=== PATIENT | male | born 1980 | race Caucasian/White ===

== ENCOUNTER 2025-07-20 10:21 | Day surgery (SDC) | payer BC, SELFPAY ==
[2025-07-20] VITALS (13 sets, daily range): BP systolic 120–147; BP diastolic 79–98; PULSE 65–84; RESP 14–18; TEMP 35.8–36.5; O2SAT 94–100; BMI 29.2
--- NOTE | 2025-07-20 11:02 | EDS_ITS ---
HPI HPI - GI History of Present Illness Chief Complaint: Foreign Body Informant: patient Narrative Narrative: 45-year-old male presenting to the emergency room and concern for esophageal food bolus. Patient states he ate steak last night for dinner. He states that maybe once a month he said times where he felt the food has not gone down all the way. He states he is always been able to get it down in the past. He tried some coke last night and some Sprite. He states that every time he tries to drink anything it comes back up. He tried again this morning with no relief, came to emergency. He has never had endoscopy before. He notes some burning midsternal pain currently did have much like he feels with indigestion. He does not take anything for GERD. PFSH PFSH Medical History no medical history Allergy/AdvReac Type Severity Reaction Status Date / Time Penicillins Allergy Intermediate PT UNSURE Verified 07/20/25 10:24 OF REACTION Social History Smoking Status: Never smoker ROS ROS ED Constitutional Constitutional ED: Denies chills, fever(s) or weight loss Eyes Eyes: Denies change in vision or diplopia ENT ENT ED: Denies ear pain, rhinorrhea or sore throat Cardiovascular Cardiovascular: Reports other Details: See history of present illness ; Denies chest pain, orthopnea, palpitations or racing heartbeat Respiratory/Chest Respiratory/Chest: Denies cough, dyspnea or orthopnea Gastrointestinal Gastrointestinal: Denies abdominal pain, diarrhea, nausea or vomiting Genitourinary Genitourinary ED: Denies dysuria, hematuria or urinary frequency Musculoskeletal Musculoskeletal: Denies arthralgias or myalgias Integumentary Denies abscess or rash Neurologic Neurologic: Denies headache(s) or weakness Psychiatric Psychiatric: Denies anxiety, depression, suicidal ideation or suicidal thoughts Endocrine Endocrinology: Denies polydipsia, polyphagia or polyuria Allergic/Immunologic Allergic/Immunologic ED: Denies mouth swelling, tongue swelling or urticaria EXAM Physical Exam Const Vital Signs: 07/20/25 10:22 07/20/25 10:51 Temperature 96.5 F L Temperature Source Oral Pulse Rate 81 Respiratory Rate 16 Respiratory Pattern Normal Blood Pressure 147/98 H Blood Pressure Mean 114 Pulse Ox 98 Oxygen Delivery Method Room Air Positive well nourished and well developed General Appearance ED: well developed HEENT Reports normocephalic, head/scalp atraumatic and moist mucous membranes Eyes PERRL and EOMs intact bilaterally Neck no lymphadenopathy, supple and no JVD Resp normal respiratory effort and clear to auscultation bilaterally Cardio regular rate, regular rhythm and no murmurs GI normal to inspection, nondistended, normoactive bowel sounds and non-tender Palpation: soft Back/Spine no CVA tenderness and normal ROM Extremity normal to inspection General Extremety ED: Negative for edema General Extremity: Negative for edema Neuro oriented x3 and CN's II-XII intact bilaterally Sensorium / Orientation: alert Motor Exam: strength 5/5 throughout Psych mental status grossly normal Mood & Affect: Negative for depressed or tearful Skin no rashes or lesions noted and no wounds MDM MDM MDM Narrative Medical decision making narrative: Differential diagnosis includes but not limited to esophageal perforation esophageal food bolus Schatzki's ring GERD stricture Patient was unable to tolerate Coke. I spoke with Dr. Archer from gastroenterology. Management Discussion w/another healthcare provider: [employer] (Dr. Jones ([facility])) Discharge Plan Triage Chief Complaint: Foreign Body ED Provider: Moise Pierce Dx/Rx/DC Orders Primary Care Provider: Roc Levy Referrals: Roc Levy MD [Primary Care Provider, Family Practice] Print Language: Irish
--- NOTE | 2025-07-20 12:25 | PRE.ANES_ITS ---
ASA Classification* ASA Classification ASA Classification: 2 Assessment & Plan Anesthesia* Anesthesia Assessment Anesthesia Assessment: Discussed sedation and/or anesthesia options, risks, benefits, and alternatives with patient/parents/legal guardian/POA. Questions invited. The patient/parents/legal guardian/POA seems to understand and agrees to proceed with anesthesia plan. Reviewed the physical assessment, medical history, allergy history and patient home medications list prior to surgery/procedure/anesthetic and documented any changes. Performed airway and anesthesia risk assessments. Anesthesia Type Anesthesia Type: MAC History Source History Obtained from:: Patient and Chart Anesthesia Focused Assessment* Temperature: 96.5 F Pulse Rate: 81 Blood Pressure: 147/98 Respiratory Rate: 16 Pulse Ox: 98 Oxygen Delivery Method: Room Air Airway Assessment Mouth opens: >3 cm Mallampati Score: III Teeth Condition: Intact Neck Range of motion (ROM): Full ROM Labs Anesthesia Preop lab: CBC CHEMISTRY Potassium, (3.5-5.1) 3.7 mmol/L 07/06/16, 16:06 Sodium, (136-145) 141 mmol/L 07/06/16, 16:06 BUN, (7-18) 16 mg/dL 07/06/16, 16:06 Creatinine, (0.70-1.30) 0.93 mg/dL 07/06/16, 16:06 Glucose, (70-110) 90 mg/dL 07/06/16, 16:06 COAG Pre-Assessment Diagnosis/Proposed Procedure Planned Operative Procedure(s): Esophagogastroduodenoscopy with possible biopsy, dilation, or cautery. Anesthesia History Anesthesia History - home health aide caregiver: Anesthesia History - home health aide caregiver Hx Hospitalization Any Problems With Anesthesia Cholinesterase deficiency You/Your Family Experience fever (hyperthermia) with Relationship Recent Exposure to Contagious Disease Does patient have nerve stimulator Patient instructed to have device shut off --Does patient have Pacemaker or ICD? When Was Last Pacemaker Check QUESTION #4 FULL TEXT: You/Your Family Experience fever (hyperthermia) with Anesthesia Last Oral Intake Last Oral intake: Last Oral Intake NPO since 0000 Meds taken in AM with sips of water? Meds patient instructed to take am of surgery PONV PONV - home health aide caregiver: PONV - home health aide caregiver Female HX of Motion Sickness HX of N/V After Surgery Non-Smoker Duration of Surgery greater than 60 minutes Number of Risk Factors PONV Score Height & Weight Height & Weight: Anesthesia: Height & Weight Height 5 ft 9 in 07/20/25 10:22 Weight: 89.857 kg 07/20/25 10:22 Body Mass Index (BMI) 29.2 07/20/25 10:22 Respiratory Assessment Respiratory Assessment - home health aide caregiver: Respiratory Tract Infection Hx - home health aide caregiver Hx Respiratory Tract Infection N STOP Sleep Apnea STOP Sleep Apnea - home health aide caregiver: STOP Sleep Apnea - home health aide caregiver Hx Hypertension Hx Sleep Apnea CPAP BIPAP Do you snore loudly (louder than talking or can be heard Do you often feel tired/ fatigued/ sleepy during daytime? Has anyone observed you stop breathing during sleep? STOP Results QUESTION #5 FULL TEXT : Do you snore loudly (louder than talking or can be heard through closed doors)? 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 Specify any problems Hx of Preganancy in last 3 Months Nurse Filling Out Transfusion & Questions: Date: Time: Patient unable to answer at this time (ie. confused, unrespo /Reproduction History /Reproductive History - home health aide caregiver: /Reproductive Hx- home health aide caregiver Hx Now Gestational Age (in weeks): EDC: Hx Hx Para Hx Section SAB Does the father of the baby or his family experience fever w Father of the baby Malignant Hypertension history comment PFSH Medical History no medical history Allergy/AdvReac Type Severity Reaction Status Date / Time Penicillins Allergy Intermediate PT UNSURE Verified 07/20/25 10:24 OF REACTION Surgical History (Updated 07/20/25 @ 12:[address] Chet Gates MD) [place] teeth removed Social History Smoking Status: Never smoker Review of Systems (Anesthesia) ROS Narrative System reviewed and no additional complaints, except as documented.
--- NOTE | 2025-07-20 12:50 | EGD_PTH ---
PATIENT: ADAM ALEJANDRE LOC: [facility] U#:[id number] AGE/SX: 45/M ROOM: RE07/20/[address]: Dr. Kvng Jones DO : 1980 BED: DIS: 07/20/2025 SPEC #: [id number] RECD: 07/23/25 08:22 STATUS: RIYA YAIMA #: [id number] URSULA: 07/20/25 12:[address]: Kvng Jones DEPT: SURGICAL PATHOLOGY RECD BY: Bia Matthew ENTERED: 07/23/25 11:09 SP TYPE: EGD BIOPSY EDVIN DR: Dr. Jonatan Snell MD Tissues: A - Esophagus, NOS B - Esophagus, NOS Procedures: Surgery Specimen Level IV HEADER OPERATION: EGD, removal of foreign body with biopsies PRE-OP DIAGNOSIS: Esophageal obstruction due to food impaction TISSUE SUBMITTED: Distal esophagus biopsy, random esophageal biopsies MICROSCOPIC DIAGNOSIS A. Esophagus, distal, biopsy: - Fragments of squamous mucosa with marked reactive changes, hyperparakeratosis with dyskeratosis, and focal possible erosion/ulceration (deeper sections examined) - see note. - Up to 15 eosinophils per high power field, focal acute inflammation. - PASD stain highlights mixed bacteria and is negative for fungal organisms. Note: The dyskeratosis raises consideration of dysplasia vs severe reactive atypia. No submucosa is seen in these sections. If this biopsy represents only a portion of a larger lesion, the findings may not be disability representative. Recommend correlation with clinical and endoscopic findings. B. Esophagus, random, biopsy: - Squamous mucosa with marked reactive changes and hyperparakeratosis with dyskeratosis. - 80 eosinophils per high power field. MICROSCOPIC DESCRIPTION Slides are reviewed. All matched controls reacted appropriately. These tests were developed and their performance characteristics determined by [facility]. They may not have been cleared or approved by the U.[place]. Food and Drug Administration. The FDA has determined that such clearance or approval is not necessary. The above immunohistochemical markers and/or special?stains have been reviewed by the Pathologist. GROSS DESCRIPTION A. Received is one container labeled with the patient name and designated distal esophagus biopsy. The specimen consists of multiple irregular fragments of light mcdaniel soft tissue that in aggregate measure 1 x 0.6 x 0.3 cm. The specimen is totally submitted in one cassette. CPT: B. Received is one container labeled with the patient name and designated random esophageal biopsies. The specimen consists of multiple irregular fragments of light mcdaniel soft tissue that in aggregate measure 1.2 x 0.5 x 0.2 cm. The specimen is totally submitted in one cassette. CPT: 03138e1,28775 CW:07/23/2025
--- NOTE | 2025-07-20 13:08 | HP.PCM_ITS ---
HPI - General General Date of Admission: 08/01/25 Date of Service: 07/20/25 Chief Complaint: Food stuck in my throat. HPI Narrative ADAM ALEJANDRE, is [id number] male presenting to the emergency room with concern for esophageal food bolus impaction.?Patient reports eating steak last night and feeling the food has not gone down all the way. He attempted to clear the obstruction with Coca-Cola and Sprite last night and water this morning, but all attempts resulted in emesis. This prompted the ER visit. * Patient reports this happens maybe once a month (times where he felt the food has not gone down all the way) but previously always resolved spontaneously. He denies a prior endoscopy. * Associated Symptoms:?Reports current burning midsternal pain, which he describes as similar to indigestion. He denies dysphagia for liquids at present beyond regurgitation of attempts to drink. * ?Does not take medication for GERD. * ?NKDA (No Known Drug Allergies) * ?Unremarkable per patient report, no prior GI workup or endoscopy.?] PFSH Medical History no medical history Allergy/AdvReac Type Severity Reaction Status Date / Time Penicillins Allergy Intermediate PT UNSURE Verified 07/20/25 10:24 OF REACTION Surgical History [place] teeth removed Social History Smoking Status: Never smoker ROS Constitutional Constitutional: Denies fatigue, fever(s), poor appetite, weight gain or weight loss Gastrointestinal Gastrointestinal: Denies belching, bloating, change in bowel habits, change in stool character, chewing difficulty, coffee ground emesis, constipation, cramping, diarrhea, dyspepsia, dysphagia, early satiety, excessive flatus, fecal incontinence, heartburn, hematemesis, hematochezia, hemorrhoids, loose stools, melena, nausea, odynophagia, rectal bleeding, tenesmus, vomiting or weight changes Patient's Goals Of Care . What would you like to achieve or improve as a result of your hospital stay?: none Vital Signs Vital Signs Vital Signs: 07/20/25 10:22 07/20/25 10:51 07/20/25 12:33 Temperature 96.5 F L 96.5 F L Temperature Source Oral Pulse Rate 81 81 Respiratory Rate 16 16 Respiratory Pattern Normal Blood Pressure 147/98 H 147/98 H Blood Pressure Mean 114 Pulse Ox 98 98 Oxygen Delivery Method Room Air Room Air Weight Weight: 198 lb 1.6 oz Body Mass Index (BMI) 29.2 Physical Exam Const alert, oriented x3, no apparent distress and healthy appearing General Appearance: cooperative GI normal to inspection, nondistended, normoactive bowel sounds, soft to palpation, non-tender and non-distended Percussion: normal to percussion Rectal Exam: deferred Assessment & Plan Assessment/Plan (1) Esophageal obstruction due to food impaction: PLAN: 45-year-old male with: * Esophageal food bolus impaction (likely steak). * History of recurrent, spontaneous-resolving dysphagia?suggesting possible underlying esophageal pathology (e.g., peptic stricture, Schatzki ring, eosinophilic esophagitis). * Midsternal pain/discomfort?associated with obstruction and likely secondary to esophageal distension and potential chemical irritation (GERD symptoms).? The patient presents with an acute obstruction requiring intervention due to the duration of impaction (since last night) and inability to tolerate liquids. The clinical picture warrants emergent endoscopy not just for removal, but to evaluate for underlying structural or inflammatory causes.? Plan * Diagnosis/Workup: * Complete blood count (CBC), comprehensive metabolic panel (CMP), and chest X-ray to assess for complications (e.g., perforation, aspiration). * Proceed with urgent/emergent esophagogastroduodenoscopy (EGD) for direct visualization and removal of the food bolus. * Treatment: * NPO (Nil per os/Nothing by mouth). * IV access established; IV fluid hydration as needed. * This was coordinated with Anesthesia for EGD with monitored anesthesia care (MAC) or general anesthesia given the risk of aspiration during the procedure. * Endoscopic management will involve gentle disimpaction and retrieval of the bolus, followed by careful examination of the esophageal mucosa to identify the underlying cause of the stricture or ring. * Follow-up: * Schedule outpatient follow-up with Gastroenterology after discharge for further evaluation and management of the underlying cause (e.g., consideration of esophageal dilation, PPI therapy if GERD/stricture confirmed, or allergy testing/dietary modifications if eosinophilic esophagitis is suspected) Portions of this note were generated using voice recognition software ([employer] Dictation). I have reviewed the contents and every effort has been made to ensure accuracy; however, inadvertent errors in grammar, spelling, punctuation, or word choice may occur, that were not noted before signing the document and should not alter the intended clinical meaning.
--- NOTE | 2025-07-20 13:52 | OP.PROVAT_ITS ---
07/20/2025 Jonatan Snell MD [address] [id number] Re : Upper GI endoscopy procedure for Ayan Blackmons Dear Dr. Snell This procedure was performed on Sunday, July 20, 2025. My impressions and recommendations are as follows: Impressions : - Esophageal mucosal changes consistent with eosinophilic esophagitis. - Food in the lower third of the esophagus. Removal was successful. - No gross lesions in the entire stomach. - No gross lesions in the entire examined duodenum. - Biopsies were taken with a cold forceps for evaluation of eosinophilic esophagitis. Recommendations : - Discharge patient to home. - Resume previous diet. - Continue present medications. - Await pathology results. - Repeat upper endoscopy in 3 months for surveillance. My findings are described in the full procedure note, which is enclosed. If I can be of further assistance, please feel free to contact me at . Sincerely, Kvng Jones, 07/20/2025 1:52:32 PM This report has been signed electronically.
--- NOTE | 2025-07-20 13:52 | OP.EGD_ITS ---
Patient Name: Ayan Cha Procedure Date: 07/20/2025 1:19 PM Date of : 1980 Age: 45 Procedure: Upper GI endoscopy Indications: Dysphagia Providers: Kvng Jones DO Medicines: Monitored Anesthesia Care Patient Profile: This is a 45 year old male. Refer to note in patient chart for documentation of history and physical. Patient has symptoms. Complications: No immediate complications. Procedure: Pre-Anesthesia Assessment: - Prior to the procedure, a History and Physical was performed, and patient medications and allergies were reviewed. The patient is competent. The risks and benefits of the procedure and the sedation options and risks were discussed with the patient. All questions were answered and informed consent was obtained. Patient identification and proposed procedure were verified by the physician in the pre-procedure area. Mental Status Examination: alert and oriented. Airway Examination: normal oropharyngeal airway and neck mobility. Respiratory Examination: clear to auscultation. CV Examination: normal. Prophylactic Antibiotics: The patient does not require prophylactic antibiotics. Prior Anticoagulants: The patient has taken no anticoagulant or antiplatelet agents except for NSAID medication. ASA Grade Assessment: II - A patient with mild systemic disease. After reviewing the risks and benefits, the patient was deemed in satisfactory condition to undergo the procedure. The anesthesia plan was to use monitored anesthesia care (MAC). Immediately prior to administration of medications, the patient was re-assessed for adequacy to receive sedatives. The heart rate, respiratory rate, oxygen saturations, blood pressure, adequacy of pulmonary ventilation, and response to care were monitored throughout the procedure. The physical status of the patient was re-assessed after the procedure. After obtaining informed consent, the endoscope was passed under direct vision. Throughout the procedure, the patient's blood pressure, pulse, and oxygen saturations were monitored continuously. The Endoscope was introduced through the mouth, and advanced to the second part of duodenum. The upper GI endoscopy was accomplished without difficulty. The patient tolerated the procedure well. Scope In: 1:36:09 PM Scope Out: 1:46:03 PM Total Procedure Duration Time 0 hours 9 minutes 54 seconds Findings: Mucosal changes including ringed esophagus, feline appearance, longitudinal furrows and small-caliber esophagus were found in the entire esophagus. Esophageal findings were graded using the Eosinophilic Esophagitis Endoscopic Reference Score (EoE-EREFS) as: Edema Grade 1 Present (decreased clarity or absence of vascular markings), Rings Grade 2 Moderate (distinct rings that do not occlude passage of diagnostic 8-10 mm endoscope), Exudates Grade 0 None (no white lesions seen) and Furrows Grade 1 Mild (vertical lines without visible depth). Biopsies were obtained from the proximal and distal esophagus with cold forceps for histology of suspected eosinophilic esophagitis. Verification of patient identification for the specimen was done. Estimated blood loss was minimal. Food was found in the lower third of the esophagus. Removal was accomplished with a Jerome net. Verification of patient identification for the specimen was done. Estimated blood loss was minimal. No gross lesions were noted in the entire examined stomach. No gross lesions were noted in the entire examined duodenum. Impression: - Esophageal mucosal changes consistent with eosinophilic esophagitis. - Food in the lower third of the esophagus. Removal was successful. - No gross lesions in the entire stomach. - No gross lesions in the entire examined duodenum. - Biopsies were taken with a cold forceps for evaluation of eosinophilic esophagitis. Recommendation: - Discharge patient to home. - Resume previous diet. - Continue present medications. - Await pathology results. - Repeat upper endoscopy in 3 months for surveillance. Procedure Code(s): --- Professional --- 18752, Esophagogastroduodenoscopy, flexible, transoral; with removal of foreign body(s) 59581, Esophagogastroduodenoscopy, flexible, transoral; with biopsy, single or multiple CPT copyright 2021 [employer]. All rights reserved. The codes documented in this report are preliminary and upon quartz cutter review may be revised to meet current compliance requirements. Kvng Jones DO 07/20/2025 1:52:32 PM This report has been signed electronically. Number of Addenda: 0 Note Initiated On: 07/20/2025 1:19 PM
--- NOTE | 2025-07-20 13:56 | PCM.POST.ANE ---
Anesthesia: Postop Eval I Current Vital Signs Temperature: 97.2 F Pulse Rate: 84 Blood Pressure: 128/85 Respiratory Rate: 14 Pulse Ox: 98 Oxygen Delivery Method: Room Air Assessment Airway patent: Yes Spontaneous unlabored respirations: Yes Mental status: Asleep nausea: No Vomiting: No Anesthesia Complication: No Fluid Hydration Crystalloid volume administer (ml): 400 Total IV fluid infused: 400 Progress Note Anesthesia document: Postop Eval 1 completed: Yes
[2025-07-20] MEDS: Lactated Ringers 1,000 ML 15 ML IV (13:59)
[2025-07-20] MEDS: Pantoprazole Sodium 40 MG in 0.9% Normal Saline (100mL MB+) 100 ML 300 MG IV (14:00)
--- NOTE | 2025-07-20 16:12 | PCM.POSTANE2 ---
Anesthesia Postop Eval I Sum Postop Eval Completion status Anesthesia document: Postop Eval 1 completed: Yes Anesthesia Postop Eval I Summary Anesthesia Postop Eval I Summary: Anesthesia Postop Eval I: Assessment Summary Airway patent Yes 07/20/25 13:57 [email or web address] Spontaneous unlabored Yes 07/20/25 13:57 [email or web address] respirations Mental status Asleep 07/20/25 13:57 [email or web address] nausea No 07/20/25 13:57 [email or web address] Vomiting No 07/20/25 13:57 [email or web address] Anesthesia Postop Eval I: Fluid Summary Crystalloid volume administer 400 07/20/25 13:57 [email or web address] (ml) Colloids volume administered ( ml) Blood Product volume administered (ml) Total IV fluid infused 400 07/20/25 13:57 [email or web address] Anesthesia Postop Eval I: Summary Notes Anesthesia Complication No 07/20/25 13:57 [email or web address] Anesthesia Complication Comment: Post-operative progress note Anesthesia: Postop Eval II Evaluation Mental status: Awake Pain Level: 0 nausea: No Vomiting: No
== END 2025-07-20 15:00 | disposition home or self-care (01) ==
LOC: ED 11:45 → SDC 11:45 → AC 11:49
PROVIDERS: Emergency Provider Emergency Medicine; PCP Family Medicine; Visit Provider Internal Medicine Gastroenterology
PROC: 0DJ08ZZ Inspection of Upper Intestinal Tract, Via Natural or Artificial Opening Endoscopic (ICD-10-PCS; CPT 43235; principal; 2025-07-20 12:45)
DX: K22.2 Esophageal obstruction (principal); K20.90 Esophagitis, unspecified without bleeding; T18.128A Food in esophagus causing other injury, initial encounter; W44.F3XA Food entering into or through a natural orifice, initial encounter
CPT/HCPCS: 43247; 43239; 88305; 99284; J2405